=== PATIENT | female | born 1995 | race Caucasian/White ===

== ENCOUNTER 2017-07-20 19:24 | Emergency (ER) | payer BC ==
[~2017-07-20] VITALS: Ht 162.6 cm; Wt 66.5 kg
[~2017-07-20 19:24] MED LIST: HYDR50 PO; LORA10TA7 PO; NASA0.0521
[2017-07-20 19:25] VITALS: BP 130/75; PULSE 82; RESP 16; TEMP 98.1; O2SAT 98
[2017-07-20] MEDS ORDERED: SODIUM CHLOR 0.9% 1000 ML INJ 1,000 ML IV SCH (19:51)
[2017-07-20] MEDS ORDERED: KETOROLAC TROMETHAMINE 30 MG/ML (IVP) VIAL IVP ONE (20:00)
[2017-07-20] MEDS ORDERED: SODIUM CHLORIDE 0.9% FLUSH 10 ML FLUSH IV FLUSH PRN (20:00)
[2017-07-20] MEDS ORDERED: ONDANSETRON HCL 4 MG/2 ML VIAL IVP ONE (20:00)
[2017-07-20] MEDS ORDERED: FAMOTIDINE 20 MG/2 ML VIAL IV PUSH ONE (20:00)
[2017-07-20 20:18] VITALS: O2SAT 98
[2017-07-20 20:41] LABS: BILIRUBIN, URINE NEG (NEG); BLOOD, URINE NEG (NEG); GLUCOSE,URINE NEG (NEG); KETONE, URINE NEG (NEG); NITRITE,URINE NEG (NEG); PH, URINE 6.5 (5.0-8.5); URINE LEUKOCYTE ESTERASE SMALL (NEG)
[2017-07-20 20:42] LABS: AUTOMATED NEUTROPHIL # 5.1 TH/MM3 (1.8-7.7); BASOPHIL # 0.1 TH/MM3 (0-0.2); BASOPHIL % 1.8 % (0.0-2.0); EOSINOPHIL # 0.1 TH/MM3 (0-0.4); HEMATOCRIT 43.6 % (35.0-46.0); HEMOGLOBIN 14.3 GM/DL (11.6-15.3); LYMPH % 18.9 % (9.0-44.0); LYMPHOCYTE # 1.4 TH/MM3 (1.0-4.8); MEAN CELL VOLUME 88.5 FL (80.0-100.0); MEAN CORPUSCULAR HEMOGLOBIN 29.1 PG (27.0-34.0); MEAN CORPUSCULAR HGB CONC 32.9 % (32.0-36.0); MEAN PLATELET VOLUME 9.7 FL (7.0-11.0); MONO % 7.5 % (0.0-8.0); MONOCYTE # 0.5 TH/MM3 (0-0.9); NEUT % 70.8 % (16.0-70.0); PLATELET COUNT 272 TH/MM3 (150-450); RED BLOOD COUNT 4.92 MIL/MM3 (4.00-5.30); RED CELL DISTRIBUTION WIDTH 12.1 % (11.6-17.2); WHITE BLOOD COUNT 7.2 TH/MM3 (4.0-11.0)
[2017-07-20 20:52] VITALS: BP 104/64; PULSE 71; RESP 16; O2SAT 100
[2017-07-20 20:52] LABS: CALCIUM 9.4 MG/DL (8.5-10.1)
--- NOTE | 2017-07-20 20:52 | PD ---
HPI Chief Complaint: GI Complaint Time Seen by Provider: 19:36 Travel History International Travel<30 days: No Contact w/Intl Traveler<30days: No Traveled to known affect area: No History of Present Illness HPI Patient is a 22 year old female who comes in complaining of abdominal discomfort and nausea and vomiting. She says this has been going on for about a week. She says her symptoms are worse in the morning and improve throughout the day. She says the pain is mostly in the upper abdomen. She thinks she may have some constipation. Her last bowel movement was 2 days ago. She last vomited 2 days ago. She was able to eat and drink today without an issue. She denies fever or chills. She says she thought she might have been , but tests were negative. She denies fever or chills. She says she took a Zofran at home and this helped with her symptoms. PFSH Past Medical History Anxiety: Yes Depression: Yes Diminished Hearing: No Genitourinary: Yes (uti) Reproductive: Yes (Bacterial vaginosis) Tetanus Vaccination: Unknown Influenza Vaccination: No ?: Not LMP: IRRIGULAR, 6 months ago : 0 Para: 0 Miscarriage: 0 : 0 Past Surgical History Gynecologic Surgery: Yes Tonsillectomy: Yes Other Surgery: Yes Social History Alcohol Use: No Tobacco Use: No (1/2 pack per day) Substance Use: No Allergies-Medications (Allergen,Severity, Reaction): Coded Allergies: cat dander (Verified Allergy, Severe, 07/20/17) dog dander (Verified Allergy, Severe, 07/20/17) Reported Meds & Prescriptions Reported Meds & Active Scripts Active Macrobid (Nitrofurantoin Monohydrate Macrocrystals) 100 Mg Capsule 100 Mg PO BID 5 Days Zofran Odt (Ondansetron Odt) 4 Mg Tab 4 Mg SL Q6HR PRN Review of Systems Except as stated in HPI: all other systems reviewed are Neg General / Constitutional: No: Fever, Chills HENT: No: Headaches, Lightheadedness Cardiovascular: No: Chest Pain or Discomfort Respiratory: No: Shortness of Breath Gastrointestinal: Positive: Nausea, Vomiting, Abdominal Pain, Constipation Genitourinary: No: Flank Pain Musculoskeletal: No: Myalgias Skin: No Rash, No Change in Pigmentation Neurologic: No: Weakness, Dizziness Physical Exam Narrative GENERAL: Awake and alert, in no acute distress. SKIN: Focused skin assessment warm/dry. No wounds or signs of infection. HEAD: Atraumatic. Normocephalic. EYES: Pupils equal and round. No scleral icterus. ENT: Mucous membranes pink and moist. NECK: Trachea midline. No JVD. CARDIOVASCULAR: Regular rate and rhythm. No murmur appreciated. RESPIRATORY: No accessory muscle use. Clear to auscultation. Breath sounds equal bilaterally. GASTROINTESTINAL: Abdomen soft, nondistended. Tender to palpation across the upper abdomen. No rebound or guarding. MUSCULOSKELETAL: No obvious deformities. No clubbing. No cyanosis. No edema. NEUROLOGICAL: Awake and alert. No obvious cranial nerve deficits. Motor grossly within normal limits. Normal speech. PSYCHIATRIC: Appropriate mood and affect; insight and judgment normal.L: Abdomen soft, non-tender, nondistended. Hepatic and splenic margins not palpable. Data Data Last Documented VS Vital Signs Date Time Temp Pulse Resp B/P (MAP) Pulse Ox O2 Delivery O2 Flow Rate FiO2 07/20/17 20:52 71 16 104/64 (77) 100 Room Air 07/20/17 19:25 98.1 Orders Orders Basic Metabolic Panel (Bmp) (07/20/17 19:51) Complete Blood Count With Diff (07/20/17 19:51) Lipase (07/20/17 19:51) Urinalysis - C+S If Indicated (07/20/17 19:51) Iv Access Insert/Monitor (07/20/17 19:51) Ecg Monitoring (07/20/17 19:51) Oximetry (07/20/17 19:51) Ondansetron Inj (Zofran Inj) (07/20/17 20:00) Sodium Chlor 0.9% 1000 Ml Inj (Ns 1000 M (07/20/17 19:51) Sodium Chloride 0.9% Flush (Ns Flush) (07/20/17 20:00) Famotidine Inj (Pepcid Inj) (07/20/17 20:00) Ketorolac Inj (Toradol Inj) (07/20/17 20:00) Ed Urine Pregnancytest Poc (07/20/17 19:51) Hepatic Functional Panel (07/20/17 20:05) Urine Culture (07/20/17 20:05) Labs Laboratory Tests Test 07/20/17 20:05 White Blood Count 7.2 TH/MM3 Red Blood Count 4.92 MIL/MM3 Hemoglobin 14.3 GM/DL Hematocrit 43.6 % Mean Corpuscular Volume 88.5 FL Mean Corpuscular Hemoglobin 29.1 PG Mean Corpuscular Hemoglobin Concent 32.9 % Red Cell Distribution Width 12.1 % Platelet Count 272 TH/MM3 Mean Platelet Volume 9.7 FL Neutrophils (%) (Auto) 70.8 % Lymphocytes (%) (Auto) 18.9 % Monocytes (%) (Auto) 7.5 % Eosinophils (%) (Auto) 1.0 % Basophils (%) (Auto) 1.8 % Neutrophils # (Auto) 5.1 TH/MM3 Lymphocytes # (Auto) 1.4 TH/MM3 Monocytes # (Auto) 0.5 TH/MM3 Eosinophils # (Auto) 0.1 TH/MM3 Basophils # (Auto) 0.1 TH/MM3 CBC Comment DIFF FINAL Differential Comment Urine Color YELLOW Urine Turbidity CLEAR Urine pH 6.5 Urine Specific Burton 1.015 Urine Protein NEG mg/dL Urine Glucose (UA) NEG mg/dL Urine Ketones NEG mg/dL Urine Occult Blood NEG Urine Nitrite NEG Urine Bilirubin NEG Urine Leukocyte Esterase SMALL Urine RBC 0-3 /hpf Urine WBC 25-49 /hpf Urine Squamous Epithelial Cells 6-8 /hpf Urine Renal Epithelial Cells 0-5 /hpf Urine Bacteria OCC /hpf Microscopic Urinalysis Comment CULTURE INDICATED Blood Urea Nitrogen 14 MG/DL Creatinine 0.85 MG/DL Random Glucose 86 MG/DL Total Protein 8.2 GM/DL Albumin 4.1 GM/DL Calcium Level 9.4 MG/DL Alkaline Phosphatase 97 U/L Aspartate Amino Transf (AST/SGOT) 26 U/L Alanine Aminotransferase (ALT/SGPT) 18 U/L Total Bilirubin 0.6 MG/DL Direct Bilirubin 0.1 MG/DL Sodium Level 137 MEQ/L Potassium Level 4.1 MEQ/L Chloride Level 102 MEQ/L Carbon Dioxide Level 27.0 MEQ/L Anion Gap 8 MEQ/L Estimat Glomerular Filtration Rate 84 ML/MIN Indirect Bilirubin 0.5 MG/DL Lipase 86 U/L [facility] Medical Decision Making Medical Screen Exam Complete: Yes Emergency Medical Condition: Yes Medical Record Reviewed: Yes Differential Diagnosis Gastritis versus cholelithiasis versus constipation versus UTI Narrative Course Patient is a 22-year-old female comes in complaining of abdominal pain. Exam shows mild tenderness to the upper abdomen. IV established, labs sent. Labs show no acute abnormalities. Urinalysis is positive for bacteria and white blood cells. Patient given a prescription for Zofran as well as Macrobid. She is advised to follow-up with her licensed [employer]. Advised to return to the ED as needed for any worsening symptoms. Diagnosis Primary Impression: Nausea & vomiting Qualified Codes: R11.2 - Nausea with vomiting, unspecified Additional Impressions: UTI (urinary tract infection) Qualified Codes: N30.00 - Acute cystitis without hematuria Constipation Qualified Codes: K59.00 - Constipation, unspecified Patient Instructions: Constipation (ED), General Instructions, Urinary Tract Infection in Women (ED) Additional Instructions: Increase her water intake. Take Zofran as needed for nausea. Take all of your antibiotic. Follow-up with gynecology. Return to the ED as needed for any worsening symptoms. Scripts Fluconazole (Diflucan) 150 Mg Tab 150 MG PO ONCE for Infection, #1 TAB 0 Refills Prov: Selin Dean MD 07/20/17 Nitrofurantoin Monohydrate Macrocrystals (Macrobid) 100 Mg Capsule 100 MG PO BID for Infection for 5 Days, #10 CAP 0 Refills Prov: Selin Dean MD 07/20/17 Ondansetron Odt (Zofran Odt) 4 Mg Tab 4 MG SL Q6HR Y for Nausea/Vomiting, #12 TAB 0 Refills Prov: Selin Dean MD 07/20/17 Disposition: 01 DISCHARGE HOME Condition: Stable Selin Dean MD Jul 20, 2017 20:52
[2017-07-20 20:56] LABS: CREATININE 0.85 MG/DL (0.50-1.00)
[2017-07-20 21:00] LABS: URINE COLOR YELLOW (YELLW/STRAW)
[2017-07-20 21:01] LABS: RBC, URINE 0-3 /hpf (0-3)
[2017-07-20 21:02] LABS: ALBUMIN 4.1 GM/DL (3.4-5.0); BACTERIA, URINE OCC /hpf; RENAL EPITHELIAL CELLS 0-5 /hpf
[2017-07-20 21:07] LABS: TOTAL PROTEIN 8.2 GM/DL (6.4-8.2)
[2017-07-20 21:11] LABS: TOTAL BILIRUBIN ADULT 0.6 MG/DL (0.2-1.0)
[2017-07-20] MEDS ORDERED: ZOFR4TAB3 SL (21:11)
[2017-07-20] MEDS ORDERED: MACR100C2 PO (21:11)
[2017-07-20 21:16] LABS: DIRECT BILIRUBIN ADULT 0.1 MG/DL (0.0-0.2); INDIRECT BILIRUBIN 0.5 MG/DL (0.0-0.8)
[2017-07-20] MEDS ORDERED: DIFL150T PO (21:19)
[2017-07-20 22:00] VITALS: BP 115/76
== END 2017-07-20 22:30 | disposition home or self-care (01) ==
LOC: PHED 19:24
DX: R11.2 Nausea with vomiting, unspecified (principal); N39.0 Urinary tract infection, site not specified; K59.00 Constipation, unspecified; F41.9 Anxiety disorder, unspecified; F32.9 Major depressive disorder, single episode, unspecified; F17.200 Nicotine dependence, unspecified, uncomplicated
CPT/HCPCS: 80048; 80076; 81001; 83690; 84703; 85025; 87086; 96374; 96375; 99284; J1885; J2405; J7030